=== PATIENT | male | born 1940 | race Caucasian/White ===

== ENCOUNTER 2016-02-27 05:03 | Day surgery (SDC) | payer OTHER ==
[~2016-02-27] VITALS: Ht 182.9 cm; Wt 157.4 kg
--- NOTE | ~2016-02-27 | S ---
[facility] [address] [place] [address] SURGICAL PATH RPT PROCEDURE Name: LYLE MENENDEZ Room #: DEP [facility] M.R.#: [id number] Admission: 02/27/16 Date of : 42 Discharge: 02/27/16 Report #: [id number] Path Case #: [id number] PATHOLOGY REPORT COLLECTION DATE: 02/27/2016 RECEIVED DATE: 02/27/2016 SUBMITTING PHYS: Dr. Raymond Garcia OTHER PHYS: SPECIMEN(S) RECEIVED: A.Medial deep right orbital BCCA B.Lateral deep right orbital BCCA C.Inferior right lower lid margin D.Superior right upper lid margin E.Right orbital basal cell carcinoma * * * * * * * * * * * * FINAL DIAGNOSIS: A. "Medial deep right orbital BCCA," biopsy: - FIBROUS CONNECTIVE TISSUE WITH FOCAL RESIDUAL BASAL CELL CARCINOMA. B. "Lateral deep right orbital BCCA," biopsy: - Fibroadipose connective tissue with chronic inflammation and no residual basal cell carcinoma identified. C. "Inferior right lower lid margin," biopsy: - EYELID SKIN/MUCOSA AND SUBCUTANEOUS/SUBMUCOSAL TISSUE WITH FOCAL RESIDUAL BASAL CELL CARCINOMA. D. "Superior right upper lid margin," biopsy: - Skin/mucosa and subcutaneous/submucosal tissue with chronic inflammation and reactive/reparative changes; no residual basal cell carcinoma identified. E. "Right orbital basal cell carcinoma," excision: - BASAL CELL CARCINOMA, INFILTRATIVE SUBTYPE, WITH PERNEURAL INVASION; FOCALLY INVOLVING THE DEEP MARGIN IN THE INFERIOR PORTION OF THE TISSUE. COMMENT: Clinical correlation is recommended. (CLW:mgr; d/t: 03/02/16) PATHOLOGIST: Aure Garner M.D. REPORT ELECTRONICALLY SIGNED BY: Aure Garner M.D. DATE/TIME: 03/03/2016 00:14 * * * * * * * * * * * * GROSS PATHOLOGY: [facility] [address] [place] [address] SURGICAL PATH RPT PROCEDURE Name: GEMMALYLE Room #: DEP [facility].#: [id number] Admission: 02/27/16 Date of : 42 Discharge: 02/27/16 Report #: [id number] Path Case #: [id number] A. The first specimen is received fresh from the OR labeled, "Gemma, Lyle, medial deep right orbital BCCA." It consists of an irregular fragment of deshpande-brown tissue measuring 0.7 x 0.2 x 0.2 cm. It is inked red. It is entirely submitted for one frozen section. The frozen section is then submitted as A1. B. The second specimen is received fresh from the OR labeled, "Gemma, Lyle, lateral deep right orbital BCCA." It consists of an irregular fragment of deshpande-brown tissue measuring 0.9 x 0.5 x 0.2 cm. It is inked green. It is entirely submitted for one frozen section. The frozen section is then submitted as B1. C. The third specimen is received fresh from the OR labeled, "Gemma, Lyle, inferior right lower lid margin." It consists of a fragment of eyelid skin and subcutaneous tissue measuring 0.9 x 0.4 x 0.3 cm. The new margin is inked blue. It is entirely submitted for one frozen section. The frozen section is then submitted as C1. D. The first specimen is received fresh from the OR labeled, "Lyle Menendez, superior right upper lid margin." It consists of a portion of eyelid skin and subcutaneous tissue measuring 0.9 x 0.4 x 0.3 cm. The new margin is inked black. It is entirely submitted for one frozen section. The frozen section is then submitted as D1. (CLW:; d/t: 02/27/16) E. The specimen is received in formalin labeled "Lyle Menendez, right orbital basal cell carcinoma". Received is an irregular excision of lateral canthus eyelid skin measuring 2.1 x 1.7 x 1.5 cm in greatest dimensions. The epidermal surface displays a well-circumscribed, irregular in contour and pale deshpande apparent lesion measuring 0.5 x 0.4 cm. The surgical margin is inked. Sectioning reveals the apparent lesion to extend to a depth of 1.0 cm, which grossly approaches the inked margin in the inferior half. The specimen is sectioned into seven pieces and entirely submitted from superior to inferior in cassettes E1 through E4, with the apparent tips placed in cassette E4. (CAA; 02/28/2016) FROZEN SECTION DIAGNOSIS: (Jeanna Garner M.D.) A. "Medial deep right orbital BCCA": - POSITIVE FOR TUMOR. B. "Lateral deep right orbital BCCA": - Negative for BCCA. C. "Inferior right lower lid margin": - FOCALLY POSITIVE FOR TUMOR. D. "Superior right upper lid margin": - Negative for BCCA. The case was discussed with Dr. Raymond Garcia in the operating room, and a written report is placed in the patient's chart. (KARENW:; d/t: 02/27/16) Testing performed by [facility] at [address], [place], [place] [address] [place] [id number] SURGICAL PATH RPT PROCEDURE Name: LYLE MENENDEZ Room #: DEP [facility] M.R.#: [id number] Admission: 02/27/16 Date of : 42 Discharge: 02/27/16 Report #: [id number] Path Case #: [id number] CLINICAL HISTORY: Right orbital BCCA INITIAL CPT CODE(S): A; 44719, 83162 B; 22032, 93632 C; 69119, 91828 D; 58480, 90854 E; 60068 Professional services performed by [facility] at [address], [place] [address] Technical services performed by [facility] at [address] [place] [address], [place] [address]. [facility] [address] [place] [address] PHONE: [phone] DIRECTOR: Douglas Avina M.D. * * * END OF REPORT * * *
--- NOTE | ~2016-02-27 | EKG ---
[address] [address] ELECTROCARDIOGRAM REPORT Name: GWYN CASIANO Room #: 150-4 [facility].R.#: [id number] Admission: 02/27/16 Attend Phys: Raymond Garcia MD Discharge: Date of : 42 Report #: [id number] THIS REPORT FOR: //name// [facility] Test Date: 2016-02-27 Test Time: 10:59:21 Pat Name: GWYN CASIANO Department: Room: 150 4 Gender: M Shanker Out: THUY : 1940 Requested By: Raymond Garcia Order Number: [id number] MD: Les Garcias Measurements Intervals [place] Rate: 89 P: 56 WA: 164 QRS: 13 QRSD: 103 T: 29 QT: 394 QTc: 480 Interpretive Statements Sinus rhythm Consider left atrial enlargement Electronically Signed On 02-27-2016 12:49:57 AMMONIA DISTILLER by Les Garcias [email or web address] <ELECTRONICALLY SIGNED> By: Les Garcias MD 02/27/16 1249 1059 1059 Les Garcias MD /BRENDA
--- NOTE | ~2016-02-27 | O ---
[facility] [place] [address] [place] [address] OPERATIVE REPORT Name: GWYN CASIANO Room #: 150-4 [facility] M.R.#: [id number] Admission: 02/27/16 Attend Phys: Raymond Garcia MD Discharge: Date of : 42 Report #: [id number] THIS REPORT FOR: //name// CC: FAM unknown ROXANNA Garcia DATE OF SERVICE: 02/27/2016 PREOPERATIVE DIAGNOSIS: Recurrent basal cell carcinoma of right lower lid, right lateral canthus, right upper lid and right orbit. POSTOPERATIVE DIAGNOSIS: Recurrent basal cell carcinoma of right lower lid, right lateral canthus, right upper lid and right orbit. PROCEDURE: Excision of basal cell carcinoma of right lower lid, right orbit, right upper lid and right lateral canthus with fasciocutaneous flap repair of right lower lid defect, myocutaneous flap repair of right upper lid, and transconjunctival orbitotomy with tumor excision. SURGEON: Raymond Garcia MD. SYSTEMS ADMINISTRATOR: None. ANESTHESIA: General. COMPLICATIONS: None. INDICATIONS FOR SURGERY: This pleasant 76-year-old gentleman has what appears to be a massive recurrence of a basal cell carcinoma in his right lateral orbit. He has previously undergone a tumor resection with a vascularized tarsoconjunctival flap from his right upper lid to his right lower lid in addition to a full thickness skin graft. He was apparently lost to follow up and has experienced a massive recurrence of that tumor that by imaging shows it has grown into his lateral orbit. He presents today for excision of as much of the tumor as possible in the orbit via transconjunctival approach in addition to excision of the tumor in the right upper lid, the right lower lid and the right lateral canthus. Informed consent was obtained to include but not limited to the potential risk for loss of vision, bleeding, infection, failure to improve the problem, the potential need for further surgery or treatment and the certain need for external radiation in order to allow him to preserve his globe. DESCRIPTION OF PROCEDURE: The patient was taken to the operating room where [address] [address] OPERATIVE REPORT Name: GWYN CASIANO Room #: 150-4 [facility] M.R.#: [id number] Admission: 02/27/16 Attend Phys: Raymond Garcia MD Discharge: Date of : 42 Report #: [id number] general anesthesia was administered. The right lateral orbit was then anesthetized with Xylocaine with epinephrine mixed with Marcaine and Wydase. The patient was subsequently prepped and draped in the usual sterile fashion. A fine tip skin marking pen was then utilized to outline the residual tumor with what appeared to be normal appearing tissue or more normal appearing tissue (none of the tissue was normal as the entire area had been reconstructed) perpendicularly across the eyelid margin. The outline was then taken superiorly and laterally and then back around medially to make a semicircular excision. The incisions were then made with a 15 blade in a semicircular fashion. The dissection carried down on to the periosteum of the lateral orbit. The periosteum was then rotated internally reflected into the orbit. Incisions were then made perpendicularly across the eyelid margin superiorly and inferiorly and drawn to the orbital rim. Hemostasis was achieved with diligent pinpoint monopolar cautery. The transconjunctival orbitotomy was then undertaken. An incision was then made laterally taken back into the lateral orbit the underlying lateral rectus muscle from the lesion. The globe was retracted with a malleable retractor to limit direct trauma. The periosteum was then incised in the lateral orbit and the tumor reflected off of the lateral orbital wall in the area tubercle. The entire tumor was removed en-bloc and passed off for the waiting pathologist. Additional specimens were then taken in the deep medial orbit in the deep soft tissue laterally, in the medial stump of the right lower lid and the medial stump of the right upper lid. The pathologist snap froze all of those specimens and found that the lower lid reconstruction was positive and that the deep medial orbit was positive, indicating that there was still residual tumor on the lateral rectus muscle. Attention was then turned to repair of this defect, which was obviously quite extensive. All of the routinely used reconstruction techniques for this type of a defect had already been undertaken in his prior surgery. It was elected to develop a fasciocutaneous flap laterally to correct the posterior lamella. The flap was developed superotemporally and rotated into position. The flap was hinged for the lower lid superiorly and hinged for the upper lid inferiorly in order to allow upward traction on the lower lid and downward traction on the upper lid to keep him from having postoperative lagophthalmos. That fasciocutaneous flap was secured with 5-0 Vicryl and 6-0 Vicryl sutures deep. The flap itself was also connected to the fat inferiorly and superiorly to keep fasciocutaneous flap from directly contacting the globe. The posterior lamella having been corrected with a fasciocutaneous flap, a large myocutaneous flap was then developed with a curvilinear incision that was directed laterally towards the tip of the ear and then rotated inferiorly [address] [address] OPERATIVE REPORT Name: GWYN CASIANO Room #: 150-4 [facility]#: [id number] Admission: 02/27/16 Attend Phys: Raymond Garcia MD Discharge: Date of : 42 Report #: [id number] towards the mandible. Hemostasis was then re-achieved. This flap was then rotated into position and the deep margin was reapproximated with interrupted 5-0 Vicryl sutures and 6-0 Vicryl sutures. The skin was closed with interrupted 7-0 Vicryl sutures and 6-0 plain gut sutures. A flap rotated in a counterclockwise fashion was then developed superolaterally to correct the upper lid defect. Hemostasis was then re-achieved. That flap was then rotated into position and secured with buried 5-0 Vicryl sutures and 6-0 Vicryl sutures deep and 7-0 Vicryl sutures and 6-0 plain gut sutures more superficially. The wounds were then cleaned and dressed with erythromycin ophthalmic ointment. The pupil was checked and found to be reactive at the end of the case. The lid was completely closed from the tension on the upper lid, but the globe was certainly intact. The wounds were then cleaned and dressed with erythromycin ophthalmic ointment. The patient subsequently transported to the recovery area with the plan of postoperative external beam radiation being undertaken. <ELECTRONICALLY SIGNED> By: Raymond Garcia MD 03/02/16 0611 1350 1442 Raymond Garcia MD /nt
[~2016-02-27 05:03] MED LIST: ABILIFY20 MG PO; ATIVAN1 MG PO; EFFEXOR 5050 MG/1 T1 PO; GLIPIZIDE 10 MG10 MG PO; LISINOPRIL20 MG PO; NORVASC10 MG PO; PIOGLITAZONE15 MG PO
[2016-02-27 11:30] VITALS: BP 153/73
== END 2016-02-27 14:30 | disposition home or self-care (01) ==
LOC: TBA 05:03 → OR 05:03
DX: C44.112 Basal cell carcinoma of skin of right eyelid, including canthus (principal); I10 Essential (primary) hypertension; E11.9 Type 2 diabetes mellitus without complications; F32.9 Major depressive disorder, single episode, unspecified; F41.9 Anxiety disorder, unspecified; Z87.891 Personal history of nicotine dependence; Z86.010 Personal history of colon polyps
CPT/HCPCS: 50010; 50101; 50386; 50398; 51636; 56528; 56531; 62110; 62900; 70005